=== PATIENT | female | born 1990 | race Caucasian/White ===

== ENCOUNTER 2017-06-12 05:11 | Inpatient (IN) ==
[2017-06-12] MEDS ORDERED: KEFZOL 1 GM/D5W 1 GM/50 ML IVPB IV PRN (05:12)
[2017-06-12] MEDS ORDERED: LR 1,000 ML IV SCH (05:12)
[2017-06-12] MEDS ORDERED: PEPCID IV ONE (05:17)
[2017-06-12] MEDS ORDERED: SODIUM CHLORIDE 0.9% INJ ONE (05:17)
[2017-06-12] MEDS ORDERED: BICITRA PO ONE (05:17)
[2017-06-12 06:01] LABS: URINE SOURCE VOIDED
[2017-06-12 06:01] LABS: MANUAL DIFF NEEDED? NO
[2017-06-12 06:05] LABS: BASO% 0.2 % (0.0-0.8); EOS# 0.14 X1000 (0.0-0.7); EOS% 1.1 % (0.0-10.0); HEMATOCRIT 36.1 % (37.0-47.0); HEMOGLOBIN 11.6 g/dL (12.0-16.0); IMM GRAN# 0.02 X1000 (0.0-0.04); IMM GRAN% 0.2 % (0.0-0.5); LYMPH# 2.64 X1000 (1.2-3.4); LYMPH% 20.4 % (20.5-51.1); MCH 27.4 PG (27-31); MCHC 32.1 g/dL (33-37); MCV 85.3 FL (81-99); MONO% 6.2 % (1.7-9.3); MPV 11.9 FL (7.4-10.4); NEUT% 71.9 % (42.2-75.2); PLT 199 X1000 (130-400); RBC 4.23 XMIL (4.2-5.4)
[2017-06-12] MEDS ORDERED: DURAMORPH ONE (06:46)
[2017-06-12] MEDS ORDERED: PHENERGAN IM PRN (06:53)
[2017-06-12] MEDS ORDERED: PITOCIN 20 UNITS/LR 20 UNITS/1,000 ML IV.SOLN IV ONE (06:53)
[2017-06-12] MEDS ORDERED: MYLICON PO PRN (06:53)
[2017-06-12] MEDS ORDERED: DEMEROL PO PRN ×2 (06:53)
[2017-06-12] MEDS ORDERED: PITOCIN IM PRN (06:53)
[2017-06-12] MEDS ORDERED: HYDROXYZINE IM PRN (06:53)
[2017-06-12] MEDS ORDERED: M-M-R II VACCINE SUBQ ONE (06:53)
[2017-06-12] MEDS ORDERED: DEMEROL IM PRN (06:53)
[2017-06-12] MEDS ORDERED: HYDROXYZINE PO PRN (06:53)
[2017-06-12] MEDS ORDERED: BOOSTRIX VACCINE IM ONE (06:53)
[2017-06-12] MEDS ORDERED: DULCOLAX PR PRN (06:53)
[2017-06-12] MEDS ORDERED: AMBIEN PO PRN (06:53)
[2017-06-12 06:56] LABS: BILIRUBIN URINE NEGATIVE (NEGATIVE); BLOOD URINE NEGATIVE (NEGATIVE); CLARITY CLEAR (CLEAR); COLOR YELLOW; GLUCOSE URINE NEGATIVE (NEGATIVE); LEUKOCYTES URINE 2+ (NEGATIVE); NITRITE URINE NEGATIVE (NEGATIVE); PROTEIN URINE NEGATIVE (NEGATIVE); SP GRAVITY URINE 1.015; UROBILINOGEN URINE NORMAL
[2017-06-12] MEDS ORDERED: PITOCIN 10 UNITS/LR 10 UNIT/1,000 ML IV.SOLN IV SCH (07:00)
[2017-06-12] MEDS ORDERED: XYLOCAINE-MPF 2% ONE ×4 (07:02→07:27)
[2017-06-12] MEDS ORDERED: SODIUM CHLORIDE 0.9% 10 ML ONE ×2 (07:03→07:13)
[2017-06-12] MEDS ORDERED: ROBINUL ONE (07:13)
[2017-06-12] MEDS ORDERED: NEO-SYNEPHRINE ONE (07:13)
[2017-06-12] MEDS ORDERED: PITOCIN ONE (07:13)
[2017-06-12 07:17] LABS: UR AMPHETAMINES QUAL NONE DETECTED (NONE DETECT); UR BARBITUATES QUAL NONE DETECTED (NONE DETECT); UR BENZODIAZEPIN QUAL NONE DETECTED (NONE DETECT); UR CANNABINOIDS QUAL NONE DETECTED (NONE DETECT); UR COCAINE QUAL NONE DETECTED (NONE DETECT); UR MDMA QUAL NONE DETECTED (NONE DETECT); UR METHADONE QUAL NONE DETECTED (NONE DETECT); UR METHAMPHETAMINE QUAL NONE DETECTED (NONE DETECT); UR OPIATES QUAL NONE DETECTED (NONE DETECT); UR OXYCODONE QUAL NONE DETECTED (NONE DETECT); UR PCP QUAL NONE DETECTED (NONE DETECT); UR TCA QUAL NONE DETECTED (NONE DETECT)
[2017-06-12] MEDS ORDERED: DIPRIVAN 1% ONE (07:25)
[2017-06-12] MEDS ORDERED: NARCAN INJ PRN (08:15)
[2017-06-12] MEDS ORDERED: ZOFRAN ODT PO PRN (08:15)
[2017-06-12] MEDS ORDERED: TORADOL IV PRN (08:15)
[2017-06-12] MEDS ORDERED: BENADRYL IV PRN (08:15)
[2017-06-12] MEDS ORDERED: ZOFRAN IV PRN ×2 (08:15)
[2017-06-12] MEDS: MYLICON PO SCH ×4 (08:52→20:16)
[2017-06-12] MEDS: MORPHINE IV PRN ×2 (10:42→12:44)
--- NOTE | 2017-06-12 11:35 | OPERATIVE NOTE ---
PROCEDURE DATE : 06/12/2017 SURGEON: John Paul Bonilla MD. RESIDENT CARE COORDINATOR: Moncho Russo MD. PREOPERATIVE DIAGNOSES: 1. Term intrauterine . 2. Previous section, desires repeat. POSTOPERATIVE DIAGNOSES: 1. Term intrauterine . 2. Previous section, desires repeat. PROCEDURE: Repeat low transverse section. FINDINGS: The patient had a female born, weighed 7 pounds, 11 ounces. Apgars were 9 and 10. DESCRIPTION OF OPERATION: The patient was taken to the operating room and given Ancef IV. She was prepped and draped in sterile fashion after spinal anesthesia was inserted by Dr. Marley. Pump hose and stockings were placed along with a Moody catheter. We made a Pfannenstiel skin incision in previous incision site, sharply dissected down to fascia. Fascia dissected off the rectus muscle with Hamilton scissors. We dissected into the abdomen bluntly and then created our bladder flap using Metzenbaum scissors. A low transverse incision was made. Clear fluid was noted upon entering the amniotic sac. The infant was delivered using fundal pressure and is doing well at this time. Cord blood was obtained. Placenta was removed. The uterus was cleaned with a lap, and the incision was closed with #1 chromic in interlocking fashion. Good hemostasis was noted throughout. The uterus was put back in its anatomic position, and irrigation was done. Rectus muscle was closed a 0 chromic suture. Hemostasis was maintained with the Bovie. Fascia was closed with #1 Vicryl. Vicryl 3-0 was used subcuticularly, then the skin incision was closed with a 4-0 Biosyn. Estimated blood loss 500 mL. Mother and infant are doing well at this time. cc: John Paul Bonilla MD
[2017-06-12] MEDS: PERCOCET-5 PO PRN (15:29)
[2017-06-12] MEDS: MOTRIN PO PRN (15:29)
[2017-06-12] MEDS: PERCOCET-10 PO PRN ×2 (18:17→21:59)
[2017-06-12] MEDS: PERICOLACE PO SCH (20:16)
[2017-06-13] MEDS: PERCOCET-10 PO PRN ×5 (02:08→23:21)
--- NOTE | 2017-06-13 03:51 | HISTORY AND PHYSICAL ---
HISTORY OF PRESENT ILLNESS: The patient is a 26-year-old female 2, para 1, with an EDC of 06/19/2017. She had a previous , desires repeat at this time and is admitted so. She has had routine care without any significant issues. Last ultrasound showed normal growth and normal fluid. She is admitted at this time for repeat . All questions are answered. PAST MEDICAL HISTORY: . MEDICINES: vitamins. ALLERGIES: None. PHYSICAL EXAMINATION: GENERAL: Well-developed female. HEENT: Benign. NECK: Supple. LUNGS: Clear. CARDIOVASCULAR: Regular rate and rhythm. ABDOMEN: Soft, nontender. EXTREMITIES: Without clubbing, cyanosis, or edema. ASSESSMENT AND PLAN: A 26-year-old with a term intrauterine . Previous . Admitted at this time for repeat . cc: John Paul Bonilla MD
[2017-06-13 06:31] LABS: HEMATOCRIT 35.3 % (37.0-47.0); HEMOGLOBIN 11.1 g/dL (12.0-16.0); MCH 27.2 PG (27-31); MCHC 31.4 g/dL (33-37); MCV 86.5 FL (81-99); MPV 11.9 FL (7.4-10.4); RBC 4.08 XMIL (4.2-5.4)
[2017-06-13] MEDS ORDERED: LR 1,000 ML IV SCH (06:53)
[2017-06-13] MEDS: MYLICON PO SCH ×5 (08:55→23:57)
[2017-06-13] MEDS: MOTRIN PO PRN ×2 (12:09→19:35)
[2017-06-13] MEDS: PERCOCET-5 PO PRN (19:35)
[2017-06-13] MEDS: PERICOLACE PO SCH ×2 (19:35→23:57)
[2017-06-14] MEDS: PERCOCET-10 PO PRN ×4 (02:44→13:55)
[2017-06-14] MEDS: MOTRIN PO PRN ×2 (02:44→10:50)
[2017-06-14] MEDS: MYLICON PO SCH ×2 (10:50→13:55)
[2017-06-14 12:28] VITALS: BP 127/84
--- NOTE | 2017-06-15 16:06 | DISCHARGE SUMMARY ---
ADMISSION DATE: 06/12/2017 DISCHARGE DATE: 06/14/2017 ADMITTING DIAGNOSIS: Term , for repeat delivery. DISCHARGE DIAGNOSIS: Term , delivered via delivery. CONDITION: Stable. DIET: As tolerated. ACTIVITY: Routine and postoperative instructions. She is to follow up next week with Dr. Bonilla. Percocet 5 mg 1-2 as needed for pain. She is to continue her previous medications, vitamins and iron. Please refer to Ms. Huang's history and physical and operative note. She was admitted on , 06/12 for repeat delivery. She underwent that and has had an uncomplicated recovery course. Currently postop day 2, desiring discharge. DISCHARGE EXAMINATION: Vital signs: Stable. General: She is alert and cooperative, no distress. Neck: Supple. Lungs: Clear. Heart: Regular sinus rhythm. Abdomen: Distended, but uterus is firm. Incision is dry and intact. +2 lower extremity edema. We will discharge with above instructions. cc: MD John Paul Garcia MD
== END 2017-06-14 14:00 | disposition home or self-care (01) ==
LOC: P.LD 05:11 → P.WC 11:18
PROVIDERS: ADMIT Obstetrics & Gynecology; ATTEND Obstetrics & Gynecology